=== PATIENT | female | born 1960 | race Two or more races ===

== ENCOUNTER 2017-07-23 18:10 | Inpatient (IN) | payer SELFPAY ==
[2017-07-23] MEDS ORDERED: NORMAL SALINE 1000 ML 1,000 ML IV ONE ×3 (18:40→20:51)
[2017-07-23] MEDS ORDERED: NALOXONE HCL INJ/PF 0.4 MG/1 ML SDV IV ONE (18:41)
--- NOTE | 2017-07-23 18:44 | ER Document Report ---
ED General - General Chief Complaint: Overdose Stated Complaint: POSSIBLE OVERDOSE Time Seen by Provider: 07/23/17 18:40 Cannot obtain history due to: Intoxicated, Unstable vital signs, Altered mental status Notes: Patient is a 57-year-old female with past medical history of hypertension, hyperlipidemia and chronic anemia who presents after attempting suicide Via Tylenol, lisinopril and alcohol overdose. History is extremely limited at time of presentation as patient is intoxicated, altered, and combative. Apparently she texted her daughter today stating that she was going to end it all, was found by EMS with a knife under her bed, an empty bottle of liquor next to her and multiple empty pill bottles. Patient is unable to provide any meaningful history. She apparently has a history of doing this once in the past 6 years ago but has refused psychiatric care since that time. TRAVEL OUTSIDE OF THE [place] IN LAST 30 DAYS: No - Related Data Allergies/Adverse Reactions: aspirin [Aspirin] Allergy (Verified 12/08/14 18:07) Past Medical History - General Information source: Relative, [facility] Records Cannot obtain history due to: Intoxicated, Unstable vital signs, Uncooperative, Altered mental status - Social History Smoking Status: Never Smoker Frequency of alcohol use: Occasional Drug Abuse: None Lives with: Family Family History: Reviewed & Not Pertinent - Past Medical History Cardiac Medical History: Denies: Hx Coronary Artery Disease, Hx Heart Attack, Hx Hypertension Pulmonary Medical History: Reports: Hx Bronchitis Denies: Hx Asthma, Hx COPD, Hx Pneumonia, Hx Tuberculosis Neurological Medical History: Denies: Hx Cerebrovascular Accident, Hx Seizures Musculoskeltal Medical History: Denies Hx Arthritis Psychiatric Medical History: Reports: Hx Depression Past Surgical History: Reports: Hx Cholecystectomy, Hx Tonsillectomy. Denies: Hx Pacemaker - Immunizations Hx Diphtheria, Pertussis, Tetanus Vaccination: No Review of Systems - Review of Systems -: Yes ROS unobtainable due to patient's medical condition Physical Exam - Vital signs Vitals: Pulse Ox 98 07/23/17 18:12 Interpretation: Hypotensive, Bradycardic Notes: PHYSICAL EXAMINATION: GENERAL: Altered, combative, intermittently somnolent HEAD: Atraumatic, normocephalic. EYES: Pupils equal round and reactive to light, extraocular movements intact, sclera anicteric, conjunctiva are normal. ENT: nares patent, oropharynx clear without exudates. Moderately dry mucous membranes. NECK: Normal range of motion, supple without lymphadenopathy LUNGS: Breath sounds clear to auscultation bilaterally and equal. No wheezes rales or rhonchi. HEART: Regular bradycardia without murmurs ABDOMEN: Soft, nontender, normoactive bowel sounds. No guarding, no rebound. No masses appreciated. EXTREMITIES: Normal range of motion, no pitting or edema. No cyanosis. NEUROLOGICAL: No focal neurological deficits. Moves all extremities spontaneously PSYCH: Intimately agitated, alternated with somnolence. SKIN: Warm, Dry, normal turgor, no rashes or lesions noted. Course - Re-evaluation Re-evalutation: 07/23/17 18:42 Patient presents altered although she is protecting her airway currently GCS of 10. She reportedly took an unknown quantity of Tylenol and lisinopril and is denying any additional coingestions although I do not believe she is at all reliable historian at this point. Her degree of altered mental status is not clinically consistent with those being the only 2 substances that she took. She is unable or unwilling to tell me when she took these medications. Will abstain stat laboratories including Tylenol and salicylate levels, iron levels as patient does have ferrous sulfate bottle at the bedside, will begin aggressive IV hydration as patient is hypotensive at time of arrival and continue to monitor very closely for any signs of possible airway compromise due to patient's altered mental status. At this time she does not meet intubation criteria. Will also give 0.4 mg of naloxone to see if patient does have a response to this medication. Will continue to reassess frequently. She is critically ill at this time. 07/23/17 18:50 Patient has had slight worsening of her hypotension, no response to Narcan. Second liter of fluid is being initiated at this time. Continues to be altered and intermittently combative. Continues to be without medication for an emergent airway. 07/23/17 19:19 Patient's blood pressure continues to be improved currently 100 on 56. She continues to protect her airway but is extremely agitated, rolling around the bed, fighting against staff. Will provide IV haloperidol at this time to try to relax the patient and allow her to comply with treatment. Patient will also be placed under IVC as the daughter is now at the bedside and verifying that the patient admits that this was a suicide attempt today. She also notes that there was a large amount of empty alcohol bottles around the patient which would explain her altered mental status. 07/23/17 19:46 Patient's Tylenol level is mildly elevated although not yet at the threshold to treat with N-acetylcysteine. Will repeat a Tylenol level 4 hours from initial draw. 07/23/17 20:51 Patient's blood pressure continues to intermittently drop but then does improve with fluids. Will continue on maintenance fluids at this time targeting a map of 60 or greater. 07/23/17 21:32 Patient continues to have hypotension, pressure is currently 80/45, sleeping soundly but wakes to noxious stimuli. Will give another liter of fluid to make her fourth total liter low anticipate her blood pressure is secondary to taking a large amount of lisinopril. If patient continues to persist with hypotension we may have to initiate norepinephrine to support her blood pressure. 07/23/17 22:25 Patient's blood pressure elevated dramatically with norepinephrine and norepinephrine has subsequently been able been down titrated. Her blood pressure is 91 on 50. Will discuss with hospitalist for admission 07/23/17 22:59 Patient's blood pressure is currently 111 on 67, map of 80 norepinephrine at 5. Will continue to down titrate and attempt to wean off. Awaiting repeat Tylenol level and then will discuss with hospitalist. 07/24/17 00:16 Repeat Tylenol level continues to be below a treatment threshold. Patient's blood pressure is currently 86 and 52 with norepinephrine at 3. Will discuss with hospitalist for admission. 07/24/17 00:39 I discussed with hospitalist at this time for admission and he is accepted. Patient is maintaining maps above 65 and norepinephrine, continues to protect her airway. Repeat tylenol level has returned and remains below 150. Poison control has been contacted and is in agreement with management to this point although given that we do not know exactly when the patient ingested the acetaminophen they have recommended we begin N-acetylcysteine as a precaution. This protocol has been initiated. - Vital Signs Vital signs: Temp Pulse Resp BP Pulse Ox 98.8 F 13 126/82 H 100 07/24/17 00:00 07/24/17 02:26 07/24/17 02:26 07/24/17 02:26 - Laboratory Result Diagrams: 07/23/17 18:43 07/23/17 22:24 Laboratory results interpreted by me: 07/23/17 07/23/17 07/23/17 18:43 18:43 22:24 WBC 3.6 L Hgb 11.2 L Hct 33.5 L RDW 14.1 H Monocytes % 13.8 H Sodium 147.0 H Potassium 3.1 L Chloride 114 H Iron 33.7 L Total Bilirubin 0.1 L AST 12 L Total Protein 6.1 L Albumin 3.4 L Salicylates < 1.0 L Acetaminophen 97 H 99 H 07/23/17 22:24 WBC Hgb Hct RDW Monocytes % Sodium 148.1 H Potassium 3.1 L Chloride 114 H Iron Total Bilirubin < 0.1 L AST 13 L Total Protein 6.0 L Albumin Salicylates Acetaminophen - EKG Interpretation by Me Additional EKG results interpreted by me: 07/23/17 18:43 Sinus bradycardia, rate 57. No ST elevations or depressions. QTC is 444. Critical Care Note - Critical Care Note Total time excluding time spent on procedures (mins): 79 Comments: Critical care time spent obtaining history from patient or surrogate, discussions with consultants, development of treatment plan with patient or surrogate, evaluation of patient's response to treatment, examination of patient , ordering and performing treatments and interventions, ordering and review of laboratory studies, re-evaluation of patient's condition, ordering and review of radiographic studies and review of old charts Discharge - Discharge Clinical Impression: Lisinopril overdose, Suicide attempt Polysubstance overdose Qualifiers: Encounter type: initial encounter Injury intent: intentional self-harm Qualified Code(s): T50.902A - Poisoning by unspecified drugs, medicaments and biological substances, intentional self-harm, initial encounter Tylenol overdose Qualifiers: Encounter type: initial encounter Injury intent: intentional self-harm Qualified Code(s): T39.1X2A - Poisoning by 4-Aminophenol derivatives, intentional self-harm, initial encounter Alcohol intoxication Qualifiers: Complication of substance-induced condition: uncomplicated Qualified Code(s): F10.920 - Alcohol use, unspecified with intoxication, uncomplicated Hypotension Qualifiers: Hypotension type: unspecified hypotension type Qualified Code(s): I95.9 - Hypotension, unspecified Condition: Critical Disposition: ADMITTED INPATIENT Admitting Provider: [facility] Admitted: ICU
[2017-07-23 18:51] LABS: ABSOLUTE LYMPHOCYTES (AUTO) 1.1 10^3/uL (0.5-4.7); ABSOLUTE MONOCYTES (AUTO) 0.5 10^3/uL (0.1-1.4); ABSOLUTE NEUT (AUTO) 1.9 10^3/uL (1.7-8.2); BASOPHILS % (AUTO) 0.3 % (0-2); EOSINOPHILS % (AUTO) 0.6 % (0-6); HEMATOCRIT 33.5 % (36.0-47.0); HEMOGLOBIN 11.2 g/dL (12.0-15.5); LYMPHOCYTES % (AUTO) 31.8 % (13-45); MEAN CORPUSCULAR HEMOGLOBIN 28.7 pg (27.0-33.4); MEAN CORPUSCULAR HGB CONC 33.5 g/dL (32.0-36.0); MEAN CORPUSCULAR VOLUME 86 fl (80-97); MONOCYTES % (AUTO) 13.8 % (3-13); PLATELET COUNT 184 10^3/uL (150-450); RED BLOOD COUNT 3.92 10^6/uL (3.72-5.28); RED CELL DISTRIBUTION WIDTH 14.1 % (11.5-14.0); SEGMENTED NEUTROPHILS % (AUTO) 53.5 % (42-78); TOTAL CELLS COUNTED % (AUTO) 100 %; WHITE BLOOD COUNT 3.6 10^3/uL (4.0-10.5)
[2017-07-23 19:03] LABS: VENOUS BLOOD BASE EXCESS -0.5 mmol/L; VENOUS BLOOD HCO3 26.4 mmol/L (20-32); VENOUS BLOOD PH 7.31 (7.30-7.42)
[2017-07-23 19:11] LABS: ACETAMINOPHEN 97 ug/mL (10-30); ALANINE AMINOTRANSFERASE 25 U/L (9-52); ALBUMIN 3.4 g/dL (3.5-5.0); ALCOHOL 271 mg/dL (NONE DETECTED); ALKALINE PHOSPHATASE 47 U/L (38-126); ANION GAP 8 (5-19); ASPARTATE AMINO TRANSFERASE 12 U/L (14-36); BILIRUBIN,DIRECT 0.1 mg/dL (0.0-0.4); BILIRUBIN,TOTAL 0.1 mg/dL (0.2-1.3); BLOOD UREA NITROGEN 14 mg/dL (7-20); CALCIUM 8.8 mg/dL (8.4-10.2); CARBON DIOXIDE 25 mmol/L (22-30); CHLORIDE 114 mmol/L (98-107); GLUCOSE 88 mg/dL (75-110); IRON 33.7 ug/dL (37-170); POTASSIUM 3.1 mmol/L (3.6-5.0); TOTAL PROTEIN 6.1 g/dL (6.3-8.2)
[2017-07-23] MEDS ORDERED: HALOPERIDOL LACTATE INJ 5 MG/1 ML VIAL IV ONE (19:18)
[2017-07-23 19:23] LABS: SALICYLATE < 1.0 mg/dL (2.0-20.0)
[2017-07-23 20:40] LABS: APPEARANCE,URINE CLEAR; BILIRUBIN,URINE NEGATIVE (NEGATIVE); COLOR,URINE STRAW; GLUCOSE, URINE NEGATIVE (NEGATIVE); KETONES,URINE NEGATIVE (NEGATIVE); LEUKOCYTE ESTERASE,URINE NEGATIVE (NEGATIVE); NITRITE,URINE NEGATIVE (NEGATIVE); PROTEIN,URINE NEGATIVE (NEGATIVE); URINE SPECIFIC GRAVITY 1.008; UROBILINOGEN,URINE NEGATIVE mg/dL (<2.0)
[2017-07-23 20:56] LABS: URINE AMPHETAMINES SCREEN NEGATIVE; URINE BARBITURATES SCREEN NEGATIVE; URINE BENZODIAZEPINES SCREEN NEGATIVE; URINE COCAINE SCREEN NEGATIVE; URINE MARIJUANA (THC) SCREEN NEGATIVE; URINE METHADONE SCREEN NEGATIVE; URINE PHENCYCLIDINE SCREEN NEGATIVE
[2017-07-23] MEDS ORDERED: DEXTROSE 5%-WATER 250 ML with NOREPINEPHRINE BITARTRATE 4 MG IV PRN ×2 (21:32)
[2017-07-23] MEDS ORDERED: NOREPINEPHRINE BITARTRATE INJ/PF 4 MG/4 ML SDV IV ONE (21:36)
--- NOTE | 2017-07-23 22:38 | EKG REPORT ---
SEVERITY:- ABNORMAL ECG - SINUS RHYTHM PROBABLE INFERIOR INFARCT, AGE INDETERMINATE : Confirmed by: Mello West 23-Jul-2017 22:37:41
[2017-07-24] MEDS ORDERED: IPRATROPIUM/ALBUTEROL 0.5-2.5 MG/3 ML AMPUL NEB PRN (00:39)
[2017-07-24] MEDS ORDERED: ACETYLCYSTEINE INJ 6000 MG/30 ML IV ONE ×3 (00:45→05:45)
[2017-07-24 01:38] LABS: ALANINE AMINOTRANSFERASE 17 U/L (9-52); ALBUMIN 3.5 g/dL (3.5-5.0); ALKALINE PHOSPHATASE 48 U/L (38-126); ANION GAP 10 (5-19); ASPARTATE AMINO TRANSFERASE 13 U/L (14-36); BLOOD UREA NITROGEN 14 mg/dL (7-20); CALCIUM 8.8 mg/dL (8.4-10.2); CARBON DIOXIDE 24 mmol/L (22-30); CHLORIDE 114 mmol/L (98-107); GLUCOSE 89 mg/dL (75-110); POTASSIUM 3.1 mmol/L (3.6-5.0); SODIUM 148.1 mmol/L (137-145)
[2017-07-24 01:43] LABS: INTERNATIONAL RATION (INR) 0.95; PROTHROMBIN TIME 13.4 SEC (11.4-15.4)
[2017-07-24 01:48] LABS: BILIRUBIN,TOTAL < 0.1 mg/dL (0.2-1.3)
[2017-07-24 02:05] LABS: ACETAMINOPHEN 73 ug/mL (10-30); ALANINE AMINOTRANSFERASE 25 U/L (9-52); ALBUMIN 3.2 g/dL (3.5-5.0); ALKALINE PHOSPHATASE 45 U/L (38-126); ASPARTATE AMINO TRANSFERASE 13 U/L (14-36); TOTAL PROTEIN 5.5 g/dL (6.3-8.2)
[2017-07-24 02:11] LABS: BILIRUBIN,TOTAL < 0.1 mg/dL (0.2-1.3)
[2017-07-24] MEDS: NORMAL SALINE 1000 ML 1,000 ML IV PRN ×2 (02:51→08:17)
[2017-07-24] MEDS: POTASSI CL 20 MEQ/50 ML RIDER 20 MEQ/50 ML RTUPB IV SCH ×2 (02:57→05:03)
[2017-07-24] MEDS ORDERED: LORAZEPAM INJ 2 MG/1 ML VIAL IV ONE (04:22)
[2017-07-24 05:36] LABS: ABSOLUTE LYMPHOCYTES (AUTO) 0.8 10^3/uL (0.5-4.7); ABSOLUTE MONOCYTES (AUTO) 0.2 10^3/uL (0.1-1.4); ABSOLUTE NEUT (AUTO) 1.8 10^3/uL (1.7-8.2); BASOPHILS % (AUTO) 0.4 % (0-2); EOSINOPHILS % (AUTO) 0.7 % (0-6); HEMATOCRIT 32.8 % (36.0-47.0); MEAN CORPUSCULAR HEMOGLOBIN 28.5 pg (27.0-33.4); MEAN CORPUSCULAR HGB CONC 33.5 g/dL (32.0-36.0); MEAN CORPUSCULAR VOLUME 85 fl (80-97); MONOCYTES % (AUTO) 8.8 % (3-13); PLATELET COUNT 186 10^3/uL (150-450); RED BLOOD COUNT 3.85 10^6/uL (3.72-5.28); RED CELL DISTRIBUTION WIDTH 14.4 % (11.5-14.0); SEGMENTED NEUTROPHILS % (AUTO) 62.1 % (42-78); TOTAL CELLS COUNTED % (AUTO) 100 %; WHITE BLOOD COUNT 2.8 10^3/uL (4.0-10.5)
--- NOTE | 2017-07-24 06:06 | PDOC H&P ---
History of Present Illness Admission Date/PCP: 07/24/17 01:16 Patient complains of: Altered mental status History of Present Illness: WILLIE SCHULZ is a 57 year old female with past medical history of hypertension, dyslipidemia, chronic anemia and depression. Patient presents after admittedly attempting suicide with Tylenol, lisinopril and alcohol. History is unclear she is uncooperative and intermittently combative requiring restraints and sedation. Patient texted her daughter stating she was going to end it all found by EMS with empty bottle of alcohol and multiple empty prescription bottles. She has history of prior attempt without recent psychiatric care. Her workup is concerning for acute alcohol intoxication, hypokalemia, hypotension and acetaminophen level of 97. She requires initiation of Levophed and IV fluid challenge, toxicology is contacted recommending N-acetylcysteine with follow-up acetaminophen level. IVC papers have been completed. Past Medical History Cardiac Medical History: Denies: Coronary Artery Disease, Myocardial Infarction, Hypertension Pulmonary Medical History: Reports: Bronchitis Denies: Asthma, Chronic Obstructive Pulmonary Disease (COPD), Pneumonia, Tuberculosis Neurological Medical History: Denies: Seizures Musculoskeltal Medical History: Denies: Arthritis Psychiatric Medical History: Reports: Depression Hematology: Denies: Anemia Past Surgical History Past Surgical History: Reports: Cholecystectomy, Tonsillectomy Denies: Pacemaker Social History Information Source: Patient Lives with: Family Smoking Status: Never Smoker Hx Recreational Drug Use: No Hx Prescription Drug Abuse: No - Advance Directive Resuscitation Status: Full Code Family History Family History: Other - Unobtainable as the patient has sedated and intoxicated Parental Family History Reviewed: Yes Children Family History Reviewed: Yes Sibling(s) Family History Reviewed.: Yes Medication/Allergy Home Medications: Hydrocodone Bit/Acetaminophen [Hydrocodon-Acetaminophn 10-325] 1 each PO ASDIR PRN 12/21/14 Oxycodone HCl/Acetaminophen [Percocet 5-325 mg Tablet] 1 - 2 tab PO ASDIR PRN # 15 tablet 12/21/14 Prednisone 40 mg PO DAILY 12/21/14 Allergies/Adverse Reactions: aspirin [Aspirin] Allergy (Verified 07/24/17 05:38) Review of Systems ROS unobtainable: Due to mental status Physical Exam Vital Signs: Temp Pulse Resp BP Pulse Ox 97.9 F 17 125/87 H 98 07/24/17 04:00 07/24/17 05:30 07/24/17 05:01 07/24/17 05:30 Intake & Output 07/22/17 07/23/17 07/24/17 11:59 11:59 11:59 Output Total 400 Balance -400 General appearance: PRESENT: disheveled, mild distress, well-developed, well- nourished Head exam: PRESENT: atraumatic, normocephalic Eye exam: PRESENT: conjunctiva pink, EOMI, PERRLA. ABSENT: scleral icterus Ear exam: PRESENT: normal external ear exam Mouth exam: PRESENT: moist, tongue midline Neck exam: ABSENT: carotid bruit, JVD, lymphadenopathy, thyromegaly Respiratory exam: PRESENT: clear to auscultation xander. ABSENT: rales, rhonchi, wheezes Cardiovascular exam: PRESENT: RRR. ABSENT: diastolic murmur, rubs, systolic murmur Pulses: PRESENT: normal dorsalis pedis pul Vascular exam: PRESENT: normal capillary refill GI/Abdominal exam: PRESENT: normal bowel sounds, soft. ABSENT: distended, guarding, mass, organolmegaly, rebound, tenderness Rectal exam: PRESENT: deferred Extremities exam: PRESENT: full ROM. ABSENT: calf tenderness, clubbing, pedal edema Neurological exam: PRESENT: altered, CN II-XII grossly intact Psychiatric exam: PRESENT: appropriate affect, normal mood. ABSENT: homicidal ideation, suicidal ideation Skin exam: PRESENT: dry, intact, warm. ABSENT: cyanosis, rash Results Laboratory Results: 07/24/17 05:15 07/24/17 07/24/17 01:17 05:15 WBC 2.8 L RBC 3.85 Hgb 11.0 L Hct 32.8 L MCV 85 MCH 28.5 MCHC 33.5 RDW 14.4 H Plt Count 186 Seg Neutrophils % 62.1 Lymphocytes % 28.0 Monocytes % 8.8 Eosinophils % 0.7 Basophils % 0.4 Absolute Neutrophils 1.8 Absolute Lymphocytes 0.8 Absolute Monocytes 0.2 Absolute Eosinophils 0.0 Absolute Basophils 0.0 Total Bilirubin < 0.1 L AST 13 L ALT 25 Alkaline Phosphatase 45 Total Protein 5.5 L Albumin 3.2 L Assessment & Plan - Diagnosis (1) Polysubstance overdose Qualifiers: Encounter type: initial encounter Injury intent: intentional self-harm Qualified Code(s): T50.902A - Poisoning by unspecified drugs, medicaments and biological substances, intentional self-harm, initial encounter Is this a current diagnosis for this admission?: Yes Plan: ICU admission, supportive care, IV fluid challenge, levophed as needed. Mental health consulted, IVC paperwork completed, follow-up LFTs and acetaminophen level. (2) Alcohol intoxication Qualifiers: Complication of substance-induced condition: uncomplicated Qualified Code(s ): F10.920 - Alcohol use, unspecified with intoxication, uncomplicated Is this a current diagnosis for this admission?: Yes Plan: Please see #1 (3) Hypotension Qualifiers: Hypotension type: unspecified hypotension type Qualified Code(s): I95.9 - Hypotension, unspecified Is this a current diagnosis for this admission?: Yes Plan: Please see #1 (4) Suicide attempt Is this a current diagnosis for this admission?: Yes Plan: Please see #1 (5) Tylenol overdose Qualifiers: Encounter type: initial encounter Injury intent: intentional self-harm Qualified Code(s): T39.1X2A - Poisoning by 4-Aminophenol derivatives, intentional self-harm, initial encounter Is this a current diagnosis for this admission?: Yes Plan: Please see #1 (6) Hypokalemia Is this a current diagnosis for this admission?: Yes Plan: Repletion of potassium, follow-up magnesium and chemistry. - Time Time Spent: 50 to 70 Minutes - Inpatient Certification Medical Necessity: Need Close Monitoring Due to Risk of Patient Decompensation
[2017-07-24 06:11] LABS: ANION GAP 11 (5-19); BLOOD UREA NITROGEN 8 mg/dL (7-20); CALCIUM 8.4 mg/dL (8.4-10.2); CARBON DIOXIDE 21 mmol/L (22-30); CHLORIDE 117 mmol/L (98-107); CREATINE KINASE 34 U/L (30-135); GLUCOSE 101 mg/dL (75-110); POTASSIUM 3.8 mmol/L (3.6-5.0); SODIUM 149.3 mmol/L (137-145)
[2017-07-24] MEDS: HEPARIN SOD (PORCINE) 5,000 UNIT/ML 1 ML SYRINGE SUBCUT SCH ×3 (07:26→22:28)
[2017-07-24] MEDS ORDERED: POTASSI CL 40 MEQ/D5-1/2NS 1L 40 MEQ/1,000 ML RTUINJ IV PRN (09:10)
[2017-07-24] MEDS ORDERED: LORAZEPAM INJ 2 MG/1 ML VIAL IV PRN (09:11)
[2017-07-24] MEDS ORDERED: ACETYLCYSTEINE IV PRN (09:30)
[2017-07-24] MEDS ORDERED: WATER IV PRN (09:30)
[2017-07-24] MEDS ORDERED: DEXTROSE 5% IV PRN (09:30)
[2017-07-24] MEDS: THIAMINE HCL 100 MG, FOLIC ACID 1 MG in NORMAL SALINE 250 ML IV SCH (10:48)
--- NOTE | 2017-07-24 12:17 | PDOC PROGRESS REPORT ---
Subjective Progress Note for:: 07/24/17 Subjective:: Patient admits she drinks alcohol but makes it with food. She does not think she has a problem. At the present time denies being suicidal. Review of system All organ systems evaluated and negative except as in subjective All significant laboratories and diagnostics have been reviewed Reason For Visit: LISINOPRIL OVERDOSE DEPRESSION Physical Exam Vital Signs: Temp Pulse Resp BP Pulse Ox 97.9 F 15 138/81 H 99 07/24/17 04:00 07/24/17 07:01 07/24/17 07:01 07/24/17 07:01 Intake & Output 07/23/17 07/24/17 07/25/17 06:59 06:59 06:59 Output Total 400 Balance -400 General appearance: PRESENT: cooperative, obese Head exam: PRESENT: atraumatic, normocephalic Eye exam: PRESENT: EOMI, PERRLA Ear exam: PRESENT: normal external ear exam Mouth exam: PRESENT: moist Neck exam: PRESENT: full ROM. ABSENT: JVD, lymphadenopathy, thyromegaly Respiratory exam: PRESENT: clear to auscultation xander Cardiovascular exam: PRESENT: RRR. ABSENT: diastolic murmur, systolic murmur Vascular exam: PRESENT: normal capillary refill GI/Abdominal exam: PRESENT: firm, soft. ABSENT: normal bowel sounds, tenderness Extremities exam: PRESENT: full ROM Musculoskeletal exam: PRESENT: ambulatory Neurological exam: PRESENT: alert, awake, oriented to person, oriented to place , oriented to time, oriented to situation, CN II-XII grossly intact Psychiatric exam: PRESENT: appropriate affect, normal mood Skin exam: PRESENT: intact, normal color Results Laboratory Results: 07/24/17 05:15 07/24/17 05:15 07/24/17 07/24/17 07/24/17 01:17 05:15 05:15 WBC 2.8 L RBC 3.85 Hgb 11.0 L Hct 32.8 L MCV 85 MCH 28.5 MCHC 33.5 RDW 14.4 H Plt Count 186 Seg Neutrophils % 62.1 Lymphocytes % 28.0 Monocytes % 8.8 Eosinophils % 0.7 Basophils % 0.4 Absolute Neutrophils 1.8 Absolute Lymphocytes 0.8 Absolute Monocytes 0.2 Absolute Eosinophils 0.0 Absolute Basophils 0.0 Sodium 149.3 H Potassium 3.8 Chloride 117 H Carbon Dioxide 21 L Anion Gap 11 BUN 8 Creatinine 0.32 L Est GFR ( Amer) > 60 Est GFR (Non-Af Amer) > 60 Glucose 101 Calcium 8.4 Total Bilirubin < 0.1 L AST 13 L ALT 25 Alkaline Phosphatase 45 Total Protein 5.5 L Albumin 3.2 L 07/24/17 05:15 Creatine Kinase 34 Assessment & Plan - Diagnosis (1) Alcohol intoxication Qualifiers: Complication of substance-induced condition: uncomplicated Qualified Code(s ): F10.920 - Alcohol use, unspecified with intoxication, uncomplicated Is this a current diagnosis for this admission?: Yes Plan: Resolved (2) Hypokalemia Is this a current diagnosis for this admission?: Yes Plan: Resolved (3) Hypotension Qualifiers: Hypotension type: unspecified hypotension type Qualified Code(s): I95.9 - Hypotension, unspecified Is this a current diagnosis for this admission?: Yes Plan: Resolved (4) Polysubstance overdose Qualifiers: Encounter type: initial encounter Injury intent: intentional self-harm Qualified Code(s): T50.902A - Poisoning by unspecified drugs, medicaments and biological substances, intentional self-harm, initial encounter Is this a current diagnosis for this admission?: Yes Plan: Resolved (5) Suicide attempt Is this a current diagnosis for this admission?: Yes Plan: Patient denies being suicidal but admits as to being depressed. To start Prozac and Zyprexa (6) Tylenol overdose Qualifiers: Encounter type: initial encounter Injury intent: intentional self-harm Qualified Code(s): T39.1X2A - Poisoning by 4-Aminophenol derivatives, intentional self-harm, initial encounter Is this a current diagnosis for this admission?: Yes Plan: Treated (7) HTN (hypertension) Qualifiers: Hypertension type: essential hypertension Qualified Code(s): I10 - Essential (primary) hypertension Is this a current diagnosis for this admission?: Yes Plan: Hypotension resolved and to start Norvasc - Time Time Spent with patient: 15-24 minutes Medications reviewed and adjusted accordingly: Yes Anticipated discharge: Home Within: within 24 hours - Inpatient Certification Based on my medical assessment, after consideration of the patient's comorbidities, presenting symptoms, or acuity I expect that the services needed warrant INPATIENT care.: Yes I certify that my determination is in accordance with my understanding of Medicare's requirements for reasonable and necessary INPATIENT services [42 CFR 412.3e].: Yes Medical Necessity: Need For Continuous Telemetry Monitoring
[2017-07-24] MEDS ORDERED: FLUOXETINE HCL 20 MG CAPSULE PO ONE (13:30)
[2017-07-24] MEDS ORDERED: AMLODIPINE BESYLATE 5 MG TABLET PO ONE (13:30)
[2017-07-24 18:43] LABS: ALANINE AMINOTRANSFERASE 20 U/L (9-52); ALBUMIN 3.4 g/dL (3.5-5.0); ALKALINE PHOSPHATASE 46 U/L (38-126); ANION GAP 6 (5-19); ASPARTATE AMINO TRANSFERASE 13 U/L (14-36); BILIRUBIN,DIRECT 0.2 mg/dL (0.0-0.4); BILIRUBIN,TOTAL 0.2 mg/dL (0.2-1.3); BLOOD UREA NITROGEN 11 mg/dL (7-20); CALCIUM 9.6 mg/dL (8.4-10.2); CARBON DIOXIDE 27 mmol/L (22-30); CHLORIDE 110 mmol/L (98-107); GLUCOSE 98 mg/dL (75-110); POTASSIUM 4.2 mmol/L (3.6-5.0); SODIUM 143.2 mmol/L (137-145); TOTAL PROTEIN 6.3 g/dL (6.3-8.2)
[2017-07-24] MEDS ORDERED: OLANZAPINE 2.5 MG TABLET PO SCH (22:00)
[2017-07-24] MEDS ORDERED: OLANZAPINE 2.5 MG TABLET ONE (22:13)
[2017-07-25 01:18] LABS: ALANINE AMINOTRANSFERASE 18 U/L (9-52); ALKALINE PHOSPHATASE 42 U/L (38-126); ASPARTATE AMINO TRANSFERASE 11 U/L (14-36); BILIRUBIN,DIRECT 0.2 mg/dL (0.0-0.4); BILIRUBIN,TOTAL 0.2 mg/dL (0.2-1.3); TOTAL PROTEIN 5.8 g/dL (6.3-8.2)
[2017-07-25 01:20] LABS: ACETAMINOPHEN < 10 ug/mL (10-30)
[2017-07-25 04:25] LABS: ABSOLUTE EOSINOPHILS # (AUTO) 0.1 10^3/uL (0.0-0.6); ABSOLUTE LYMPHOCYTES (AUTO) 1.1 10^3/uL (0.5-4.7); ABSOLUTE MONOCYTES (AUTO) 0.5 10^3/uL (0.1-1.4); ABSOLUTE NEUT (AUTO) 2.3 10^3/uL (1.7-8.2); BASOPHILS % (AUTO) 0.5 % (0-2); EOSINOPHILS % (AUTO) 2.1 % (0-6); HEMATOCRIT 33.3 % (36.0-47.0); HEMOGLOBIN 10.9 g/dL (12.0-15.5); LYMPHOCYTES % (AUTO) 27.3 % (13-45); MEAN CORPUSCULAR HGB CONC 32.8 g/dL (32.0-36.0); MEAN CORPUSCULAR VOLUME 85 fl (80-97); MONOCYTES % (AUTO) 12.4 % (3-13); PLATELET COUNT 175 10^3/uL (150-450); RED CELL DISTRIBUTION WIDTH 14.2 % (11.5-14.0); SEGMENTED NEUTROPHILS % (AUTO) 57.7 % (42-78); TOTAL CELLS COUNTED % (AUTO) 100 %; WHITE BLOOD COUNT 3.9 10^3/uL (4.0-10.5)
[2017-07-25 04:29] LABS: ANION GAP 6 (5-19); BLOOD UREA NITROGEN 11 mg/dL (7-20); CALCIUM 9.2 mg/dL (8.4-10.2); CARBON DIOXIDE 27 mmol/L (22-30); CHLORIDE 111 mmol/L (98-107); CREATINE KINASE 20 U/L (30-135); GLUCOSE 87 mg/dL (75-110); POTASSIUM 3.8 mmol/L (3.6-5.0); SODIUM 143.7 mmol/L (137-145)
[2017-07-25] MEDS: HEPARIN SOD (PORCINE) 5,000 UNIT/ML 1 ML SYRINGE SUBCUT SCH (06:28)
[2017-07-25] MEDS ORDERED: AMLODIPINE BESYLATE 5 MG TABLET PO SCH (10:00)
[2017-07-25] MEDS ORDERED: FLUOXETINE HCL 20 MG CAPSULE PO SCH (10:00)
[2017-07-25] MEDS: THIAMINE HCL 100 MG, FOLIC ACID 1 MG in NORMAL SALINE 250 ML IV SCH (10:02)
[2017-07-25 11:53] VITALS: BP 160/93
[2017-07-25] MEDS ORDERED: INFLUENZA ADLT QUAD (36MOS+) 2017-18 VAC 0.5 ML SYR IM PRN (12:19)
--- NOTE | 2017-07-25 14:05 | PDOC DISCHARGE SUMMARY ---
General - Admit/Disc Date/PCP Admission Date/Primary Care Provider: 07/24/17 01:16 Discharge Date: 07/25/17 - Discharge Diagnosis (1) Alcohol intoxication Is this a current diagnosis for this admission?: Yes (2) Hypokalemia Is this a current diagnosis for this admission?: Yes (3) Hypotension Is this a current diagnosis for this admission?: Yes (4) Polysubstance overdose Is this a current diagnosis for this admission?: Yes (5) Suicide attempt Is this a current diagnosis for this admission?: Yes (6) Tylenol overdose Is this a current diagnosis for this admission?: Yes (7) HTN (hypertension) Is this a current diagnosis for this admission?: Yes (8) Anemia Is this a current diagnosis for this admission?: Yes - Additional Information Resuscitation Status: Full Code Discharge Diet: Regular Discharge Activity: Activity As Tolerated Prescriptions: Amlodipine Besylate [Norvasc 5 mg Tablet] 5 mg PO DAILY #30 tablet Fluoxetine HCl [Prozac 20 mg Capsule] 20 mg PO DAILY #30 capsule Olanzapine [Zyprexa 2.5 mg Tablet] 2.5 mg PO QHS #30 tablet Home Medications: Meloxicam [Mobic] 15 mg PO DAILY 07/24/17 Methocarbamol [Robaxin 750 mg Tablet] 750 mg PO DAILY 07/24/17 Amlodipine Besylate [Norvasc 5 mg Tablet] 5 mg PO DAILY #30 tablet 07/25/17 Fluoxetine HCl [Prozac 20 mg Capsule] 20 mg PO DAILY #30 capsule 07/25/17 Olanzapine [Zyprexa 2.5 mg Tablet] 2.5 mg PO QHS #30 tablet 07/25/17 History of Present Illness History of Present Illness: WILLIE SCHULZ with a past medical history of hypertension, dyslipidemia, chronic anemia and depression. Patient presented after admittedly attempting suicide with Tylenol, lisinopril and alcohol. Patient texted her daughter stating she was going to end it all. She was found by EMS with an empty bottle of alcohol and multiple empty prescription bottles. She has history of prior attempt without recent psychiatric care. Her workup was concerning for acute alcohol intoxication, hypokalemia, hypotension and acetaminophen level of 97. She required initiation of Levophed and IV fluid challenge. Poison control was contacted and recommended N-acetylcysteine with follow-up acetaminophen level. IVC papers were completed while in ED. Patient was admitted under the hospitalist service for further management Hospital Course Hospital Course: Patient was admitted under the hospitalist service. Blood pressure recuperated with fluid resuscitation and Levophed drip was discontinued.Was sober patient admitted that she was no longer suicidal. She expressed being remorseful. Patient also stated that she does not drink on a regular basis. Patient was educated about the dangers of acutely drinking alcohol including respiratory depression. Patient was started on Prozac and Zyprexa. Electrolyte abnormalities were replaced while in-house. IVC papers wee rescinded. Patient has been advised to follow-up with psychiatry services in [place]. Since patient had remained stable and was no longer suicidal prompted to discharge. Physical Exam Vital Signs: Temp Pulse Resp BP Pulse Ox 98.6 F 74 14 160/93 H 100 07/25/17 11:50 07/25/17 11:50 07/25/17 11:50 07/25/17 11:50 07/25/17 11:50 Intake & Output 07/24/17 07/25/17 07/26/17 06:59 06:59 06:59 Intake Total 1892 Output Total 400 4200 500 Balance -400 -2308 -500 Weight 73.6 kg General appearance: PRESENT: cooperative, obese Head exam: PRESENT: atraumatic, normocephalic Eye exam: PRESENT: conjunctiva pink, EOMI, PERRLA Ear exam: PRESENT: normal external ear exam, TM's normal bilaterally Mouth exam: PRESENT: moist Neck exam: PRESENT: full ROM, tenderness. ABSENT: JVD, lymphadenopathy Respiratory exam: PRESENT: clear to auscultation xander Cardiovascular exam: PRESENT: RRR. ABSENT: diastolic murmur, systolic murmur Vascular exam: PRESENT: normal capillary refill GI/Abdominal exam: PRESENT: normal bowel sounds, soft. ABSENT: tenderness Extremities exam: PRESENT: full ROM. ABSENT: joint swelling, pedal edema Musculoskeletal exam: PRESENT: ambulatory Neurological exam: PRESENT: alert, awake, oriented to person, oriented to place , oriented to time, oriented to situation, CN II-XII grossly intact Psychiatric exam: PRESENT: appropriate affect, normal mood Skin exam: PRESENT: intact, normal color Results Laboratory Results: 07/25/17 04:02 07/25/17 04:02 07/24/17 07/25/17 07/25/17 18:03 00:40 04:02 WBC 3.9 L RBC 3.90 Hgb 10.9 L Hct 33.3 L MCV 85 MCH 28.0 MCHC 32.8 RDW 14.2 H Plt Count 175 Seg Neutrophils % 57.7 Lymphocytes % 27.3 Monocytes % 12.4 Eosinophils % 2.1 Basophils % 0.5 Absolute Neutrophils 2.3 Absolute Lymphocytes 1.1 Absolute Monocytes 0.5 Absolute Eosinophils 0.1 Absolute Basophils 0.0 Sodium 143.2 Potassium 4.2 Chloride 110 H Carbon Dioxide 27 Anion Gap 6 BUN 11 Creatinine 0.53 Est GFR ( Amer) > 60 Est GFR (Non-Af Amer) > 60 Glucose 98 Calcium 9.6 Total Bilirubin 0.2 0.2 AST 13 L 11 L ALT 20 18 Alkaline Phosphatase 46 42 Total Protein 6.3 5.8 L Albumin 3.4 L 3.0 L 07/25/17 04:02 WBC RBC Hgb Hct MCV MCH MCHC RDW Plt Count Seg Neutrophils % Lymphocytes % Monocytes % Eosinophils % Basophils % Absolute Neutrophils Absolute Lymphocytes Absolute Monocytes Absolute Eosinophils Absolute Basophils Sodium 143.7 Potassium 3.8 Chloride 111 H Carbon Dioxide 27 Anion Gap 6 BUN 11 Creatinine 0.45 L Est GFR ( Amer) > 60 Est GFR (Non-Af Amer) > 60 Glucose 87 Calcium 9.2 Total Bilirubin AST ALT Alkaline Phosphatase Total Protein Albumin 07/24/17 07/25/17 05:15 04:02 Creatine Kinase 34 20 L Plan Discharge Plan: Discharge home Time Spent: Less than 30 Minutes
--- NOTE | 2017-07-25 19:30 | PSYCHOLOGICAL NOTE ---
Psych Note - Psych Note Psych Note: Reason for Consult: IVC, OD Contact: Daughter, Patient is a 57 year old female in ICU on IVC for an overdose of medications and alcohol. She reported she usually drinks a mix drink with dinner or at night if unable to sleep a glass of wine. She stated she might drink 3 times a month if even. She reported the FB relationship is with a male her son's age that is a "best friend, has been her shoulder to cry on and is like a second son." She denied romantic involvement or feelings though daughter is not convinced and she thinks the "male" is feeding into it (he got patient a ring she wears on her wedding finger). She denied SI and commented her daughters made her understand what impact killing herself would have had on her grandchildren. Patient was alert and oriented to person, place, time and situation. Mood was euthymic with congruent affect. She denied current SI/HI. She did not appear to be responding to internal stimuli AEB fair eye contact, answering questions appropriately when addressed, staying on topic and carrying on dialogue conversation. Thought processes were linear and organized. Conversational speech was WNL for rate, tone and prosody. Intellectual abilities are estimated to be average. Insight, judgment and impulse control were fair AEB wanting to have therapy session before leaving for [place] and then being back in time for PCM appointment. Diagnosis: 296.32 (F33.1) Major Depressive Disorder, recurrent Episode, Moderate Impression/Plan: Patient psychiatrically cleared. Recommendation to rescind IVC. She does not meet [facility] IVC criteria. She denied SI/HI and talked about future oriented things (going to [place], spending time with grandchildren) and htere was no observed psychosis. Made outpatient appointment with PCM, Dr. Owen (08/15/17). Made outpatient therapy appointment at [facility] (07/30/17). Included daughter and in plan of care. They are to have control over medications and administration. Provided outpatient resource sheet to daughter (went over it with patient and daughter) which documented appointment dates and times as well as MCM numbers (educated them on how [facility] works). Looked up crisis center in [place], [place] where patient often stays with when he is working (wrote this number on the resource sheet). Also provided resources for [facility] and [facility]. Encouraged patient to stay in [place] for the next week or so to focus on self. Noted if she goes to [place] or anywhere else for any length of time she needs to get in contact with local walk-in MH center to obtain outpatient services. Instructed daughter and to limit amount of medication patient has access (if traveling). Encouraged family to monitor patient in person at first and then by phone. Consulted with Dr. Brown regarding the management and care of patient. Hospitalist in agreement with recommendation.
--- NOTE | 2017-07-25 21:31 | EKG REPORT ---
SEVERITY:- ABNORMAL ECG - SINUS RHYTHM CONSIDER LEFT VENTRICULAR HYPERTROPHY : Confirmed by: Mello West 25-Jul-2017 21:30:48
== END 2017-07-25 13:50 | disposition home or self-care (01) | DRG 918 ==
LOC: ER 18:10 → EH 07-24 01:16 → ICU 07-24 13:11
PROVIDERS: ADMIT Internal Medicine; ATTEND Internal Medicine
PROC: 3E0F73Z Introduction of Anti-inflammatory into Respiratory Tract, Via Natural or Artificial Opening (ICD-10-PCS; principal; 2017-07-24)
PROC: 3E0234Z Introduction of Serum, Toxoid and Vaccine into Muscle, Percutaneous Approach (ICD-10-PCS; 2017-07-25)
DX: T46.4X2A Poisoning by angiotensin-converting-enzyme inhibitors, intentional self-harm, initial encounter (principal); T39.1X2A Poisoning by 4-Aminophenol derivatives, intentional self-harm, initial encounter; E87.6 Hypokalemia; F32.9 Major depressive disorder, single episode, unspecified; E78.5 Hyperlipidemia, unspecified; I95.9 Hypotension, unspecified; F10.920 Alcohol use, unspecified with intoxication, uncomplicated; F10.129 Alcohol abuse with intoxication, unspecified; D64.9 Anemia, unspecified; Z78.1 Physical restraint status; Z23 Encounter for immunization; Y92.008 Other place in unspecified non-institutional (private) residence as the place of occurrence of the external cause
CPT/HCPCS: 36415; 51701; 80048; 80053; 80076; 80307; 81001; 82550; 82803; 83540; 83735; 84443; 85025; 85610; 90686; 93005; 93010; 96361; 96365; 96366; 96375; 99291; 99292; J0132; J1630; J1644; J2060; J2310; J3411; J3480; J3490; J7030; J7050; J7060

== ENCOUNTER 2018-02-06 07:55 | Emergency (ER) | payer SELFPAY ==
--- NOTE | 2018-02-06 08:23 | ER Document Report ---
ED General - General Stated Complaint: SUICIDAL IDEATION Time Seen by Provider: 02/06/18 08:08 TRAVEL OUTSIDE OF THE [place] IN LAST 30 DAYS: No - HPI Notes: Patient is a 58-year-old female with a history of depression who presents to the ED for suicidal ideation and planning. Patient states that her family stress has been bothering her and she contemplated taking all of her depression medication last night in a suicide attempt, but with help from taking the medication. Patient states that she does feel happy that she did not attempt to take her life, but does continue to have suicidal ideations. Patient has a previous attempt in July of this year by overdose. Patient states that she is otherwise eating and drinking without any difficulties, but does have a decreased p.o. intake. She is urinating normally and having normal bowel movements. She has not noticed any extreme changes in weight, or any changes in her sleep. She has not had any visual or auditory hallucinations. Denies any other drug use. No other concerns or complaints at this time. Denies any headache, fever, head injury, neck pain, changes in vision/speech/hearing, URI, sore throat, chest pain, palpitations, syncope, cough, shortness of breath, wheeze, dyspnea, abdominal pain, nausea/vomiting/diarrhea, urinary retention, dysuria, hematuria, loss of control of bowel or bladder, numbness/tingling, or rash. - Related Data Allergies/Adverse Reactions: aspirin [Aspirin] Allergy (Verified 07/24/17 05:38) Past Medical History - Social History Smoking Status: Unknown if Ever Smoked Family History: Other - Unobtainable as the patient has sedated and intoxicated - Past Medical History Cardiac Medical History: Denies: Hx Coronary Artery Disease, Hx Heart Attack, Hx Hypertension Pulmonary Medical History: Reports: Hx Bronchitis Denies: Hx Asthma, Hx COPD, Hx Pneumonia, Hx Tuberculosis Neurological Medical History: Denies: Hx Cerebrovascular Accident, Hx Seizures Renal/ Medical History: Denies: Hx Peritoneal Dialysis Musculoskeletal Medical History: Denies Hx Arthritis Psychiatric Medical History: Reports: Hx Depression Past Surgical History: Reports: Hx Cholecystectomy, Hx Tonsillectomy. Denies: Hx Pacemaker - Immunizations Hx Diphtheria, Pertussis, Tetanus Vaccination: No Review of Systems - Review of Systems -: Yes All other systems reviewed and negative Physical Exam - Notes Notes: PHYSICAL EXAMINATION: GENERAL: Well-appearing, well-nourished and in no acute distress. A&Ox4. Answers questions appropriately. HEAD: Atraumatic, normocephalic. Non-tender. EYES: Pupils equal round and reactive to light, extraocular movements intact, sclera anicteric, conjunctiva are normal. No nystagmus. ENT: EAC clear b/l. TM's intact b/l without erythema, fluid, or perforation. Nares patent and without discharge. oropharynx clear without exudates. No tonsilar hypertrophy or erythema. Moist mucous membranes. No sinus tenderness. NECK: Normal range of motion, supple without lymphadenopathy. No rigidity/ meningismus. No midline tenderness. LUNGS: Breath sounds clear to auscultation bilaterally and equal. No wheezes rales or rhonchi. HEART: Regular rate and rhythm without murmurs, rubs, gallops. ABDOMEN: Soft, nontender, nondistended abdomen. No guarding, no rebound. Normal bowel sounds present. No CVA tenderness bilaterally. Musculoskeletal: Ext b/l: FROM to passive/active. Strength 5+/5. No deficits noted. No bony tenderness of extremities. Extremities: No cyanosis, clubbing, or edema b/l. Peripheral pulses 2+. Capillary refill less than 2 seconds. NEUROLOGICAL: Cranial nerves grossly intact. Normal speech, normal gait. Normal sensory, motor exams. PSYCH: Flat affect SKIN: Warm, Dry, normal turgor, no rashes or lesions noted. Course - Re-evaluation Re-evalutation: 02/06/18 08:22 IVC protocol initiated and psychology consult pending. Discharge - Discharge Clinical Impression: Suicidal ideation Condition: Stable Disposition: PSYCH HOSP/UNIT
--- NOTE | 2018-02-06 08:42 | EKG REPORT ---
SEVERITY:- ABNORMAL ECG - SINUS RHYTHM PROBABLE LEFT VENTRICULAR HYPERTROPHY : Confirmed by: Mello West 06-Feb-2018 08:42:02
[2018-02-06 08:44] LABS: ABSOLUTE EOSINOPHILS # (AUTO) 0.1 10^3/uL (0.0-0.6); ABSOLUTE LYMPHOCYTES (AUTO) 1.4 10^3/uL (0.5-4.7); ABSOLUTE MONOCYTES (AUTO) 0.7 10^3/uL (0.1-1.4); ABSOLUTE NEUT (AUTO) 2.4 10^3/uL (1.7-8.2); BASOPHILS % (AUTO) 0.5 % (0-2); EOSINOPHILS % (AUTO) 1.7 % (0-6); HEMATOCRIT 37.2 % (36.0-47.0); HEMOGLOBIN 12.7 g/dL (12.0-15.5); LYMPHOCYTES % (AUTO) 31.3 % (13-45); MEAN CORPUSCULAR HEMOGLOBIN 29.1 pg (27.0-33.4); MEAN CORPUSCULAR VOLUME 85 fl (80-97); MONOCYTES % (AUTO) 14.6 % (3-13); PLATELET COUNT 235 10^3/uL (150-450); RED BLOOD COUNT 4.36 10^6/uL (3.72-5.28); RED CELL DISTRIBUTION WIDTH 13.5 % (11.5-14.0); SEGMENTED NEUTROPHILS % (AUTO) 51.9 % (42-78); TOTAL CELLS COUNTED % (AUTO) 100 %; WHITE BLOOD COUNT 4.6 10^3/uL (4.0-10.5)
[2018-02-06 08:49] LABS: URINE AMPHETAMINES SCREEN NEGATIVE; URINE BARBITURATES SCREEN NEGATIVE; URINE BENZODIAZEPINES SCREEN NEGATIVE; URINE COCAINE SCREEN NEGATIVE; URINE MARIJUANA (THC) SCREEN NEGATIVE; URINE METHADONE SCREEN NEGATIVE; URINE PHENCYCLIDINE SCREEN NEGATIVE
[2018-02-06 08:52] LABS: APPEARANCE,URINE SLIGHTLY-CLOUDY; BILIRUBIN,URINE NEGATIVE (NEGATIVE); COLOR,URINE YELLOW; GLUCOSE, URINE NEGATIVE (NEGATIVE); KETONES,URINE NEGATIVE (NEGATIVE); LEUKOCYTE ESTERASE,URINE NEGATIVE (NEGATIVE); NITRITE,URINE NEGATIVE (NEGATIVE); PROTEIN,URINE NEGATIVE (NEGATIVE); URINE SPECIFIC GRAVITY 1.017; UROBILINOGEN,URINE NEGATIVE mg/dL (<2.0)
[2018-02-06 08:55] LABS: ALANINE AMINOTRANSFERASE 28 U/L (9-52); ALBUMIN 4.4 g/dL (3.5-5.0); ALCOHOL 87 mg/dL (NONE DETECTED); ALKALINE PHOSPHATASE 65 U/L (38-126); ANION GAP 11 (5-19); ASPARTATE AMINO TRANSFERASE 20 U/L (14-36); BILIRUBIN,DIRECT 0.3 mg/dL (0.0-0.4); BILIRUBIN,TOTAL 0.4 mg/dL (0.2-1.3); BLOOD UREA NITROGEN 9 mg/dL (7-20); CALCIUM 9.1 mg/dL (8.4-10.2); CARBON DIOXIDE 28 mmol/L (22-30); CHLORIDE 104 mmol/L (98-107); GLUCOSE 107 mg/dL (75-110); POTASSIUM 3.8 mmol/L (3.6-5.0); SODIUM 143.4 mmol/L (137-145); TOTAL PROTEIN 7.9 g/dL (6.3-8.2)
[2018-02-06 08:57] LABS: ACETAMINOPHEN < 10 ug/mL (10-30); SALICYLATE < 1.0 mg/dL (2.0-20.0)
--- NOTE | 2018-02-06 15:57 | PSYCHOLOGICAL NOTE ---
Psych Note - Psych Note Psych Note: Reason for Consult: suicidal ideation Patient arrived to [facility] Ed via EMS. EMS reported patient SI without plan, has mental health hx with previous SI attempts. Patient presented calm and cooperative, quiet and flat affect to [facility] staff upon arrival. Patient disclosed that last night she was having thoughts of killing herself and her plan was to overdose. Patient disclosed that she has attempted to overdose in the past and confirms she received inpatient psychiatric treatment once before in 2011. She disclosed she has thoughts of suicidal ideation "on and off" and is unable or unwilling to discloses a trigger. She reports that she has "just had everything hit her at once...everything bad that has happened in my life." Patient confirms she was drinking however denies any substance abuse states she drinks "not often" only drinks "once every 3 months or so." Patient attempts to deny current suicidal ideation and when asked why she came into [facility] this morning she started to laugh and stated my daughter made me come in. Clinician spoke with patient's daughters, Candice and Lotus. They disclose concern that the patient text her granddaughter last night at 2 AM stating she did not want to be resuscitated and goodbye. They continue to to disclose concern that the patient did not follow-up with outpatient mental health services was recommended after her intentional overdose in July of this year. They report that they took her to her appointment however there seemed to be a miscommunication with the bilingual receptionist not having the appointment on her calendar. They report the patient became very agitated and then ran out of the building requiring them to hanh her down. She has refused since to return to any therapy. The disclosed concern the patient may be drinking more often then she disclosed but are unsure of the frequency or amounts. Patient is alert and orientated to person, place, time and circumstance. Mood is euthymic with incongruent affect as relates to current topics i.e. patient laughing about thinking of killing herself. Patient endorses suicidal ideation with plan of overdose. Patient denies homicidal ideation. Delusions are absent behaviors congruent with an intact reality based presentation i.e. organized and linear thought process. Eye contact was well-maintained. Conversational speech was within normal rate, tone and prosody. Intellectual abilities appear to be within the average range. Attention and concentration are fair. Insight, judgment, impulse control are poor. Diagnosis 311 (F32.9) unspecified depressive disorder R/O bipolar Impression/plan: Patient is recommended for IVC; while the patient denies taking any medication last night, there is concern the patient is presenting similar to previous suicide attempts. Patient presented with incongruent affect (similar to today) during the 2011 event i.e. laughing about her intentional overdose and significant minimization. Last night, the patient text her granddaughter goodbye and resuscitation directives (not wanting to be resuscitated) at 2 AM this morning. It is noted the text was in Armenian and her granddaughter does not speak Armenian so had to awaken her mother (patient's daughter) to translate the text. Patient does not normally text in Armenian to her granddaughter. Clinician notes patient has 2 previous suicide attempts by overdose. Patient was seen on 07/24/2017 after intentional overdose. Her follow- up plan was for her to go to outpatient mental health provider for medication management and therapy services. Patient's family report the patient failed to follow through (she attempted to go to one appointment and ran out before being seen). Patient adamantly denies substance abuse (alcohol abuse) stating that she only drinks once every few months. It is noted the patient's family disclose concern the patient may be drinking more often than that; however, they do not live with patient and are unable to "be certain." Dr. Brown was consulted on the care and management of this patient; attending physician is in agreement with recommendations and disposition.
[2018-02-06] MEDS ORDERED: OLANZAPINE 2.5 MG TABLET PO ONE (17:12)
[2018-02-07 09:09] VITALS: BP 115/70
--- NOTE | 2018-02-07 10:04 | ER Document Report ---
Doctor's Note Notes: 02/07/18 09:10 Patient resting comfortably, discussed plan for transfer to tertiary [facility] for psychiatric treatment, patient in agreement with this plan, lab and vital signs reviewed which are stable, patient stable for transport at this time with no complaints or concerns Discharge - Discharge Clinical Impression: Suicidal ideation Condition: Stable Disposition: PSYCH HOSP/UNIT Referrals: DEBORAH MENDOZA MD [Primary Care Provider] - Follow up as needed
--- NOTE | 2018-02-07 10:25 | PSYCHOLOGICAL NOTE ---
Psych Note - Psych Note Psych Note: Reason for Consult: suicidal ideation Patient arrived to [facility] Ed via EMS. EMS reported patient SI without plan, has mental health hx with previous SI attempts. Patient presented calm and cooperative, quiet and flat affect to [facility] staff upon arrival. Diagnosis 311 (F32.9) unspecified depressive disorder R/O bipolar Impression/plan: Patient is recommended for IVC. Patient was accepted by [facility] last night; transportation occurred this morning. Dr. Brown was consulted on the care and management of this patient; attending physician is in agreement with recommendations and disposition.
== END 2018-02-07 09:10 ==
LOC: ER 07:55
DX: R45.851 Suicidal ideations (principal); F32.9 Major depressive disorder, single episode, unspecified; Z88.6 Allergy status to analgesic agent; Z90.49 Acquired absence of other specified parts of digestive tract
CPT/HCPCS: 93005; 99285; 36415; 80307 ×4; 85025; 80053; 81001; 93010; J3490